=== PATIENT | female | born 1930 | race Caucasian/White ===

== ENCOUNTER 2016-10-27 16:07 | Observation (INO) | payer MEDICARE, OTHER ==
[~2016-10-27] VITALS: Ht 160 cm; Wt 52.2 kg
[2016-10-27] MEDS ORDERED: ASPIRIN 81MG TABLET PO ONE (16:45)
[2016-10-27 17:01] LABS: BASOPHILS % 0.9 % (0.0-2.0); EOSINOPHILS % 4.3 % (0.0-5.0); HEMATOCRIT. 34.5 % (36.0-48.0); HEMOGLOBIN. 11.2 g/dL (12.0-16.0); LYMPHOCYTES % 21.1 % (20.0-50.0); MEAN CORPUSCULAR HEMOGLOBIN 27.6 pg (28.0-32.0); MEAN CORPUSCULAR HGB CONC 32.3 g/dL (31.0-37.0); MEAN CORPUSCULAR VOLUME 85.5 fL (81.0-99.0); NEUTROPHILS % 65.7 % (40.0-76.0); PLATELET 285 x1000/uL (130-400); RED BLOOD CELL COUNT 4.04 mill/uL (4.2-5.4); RED CELL DISTRIBUTION WIDTH 14.8 % (11.6-14.6); WHITE BLOOD COUNT 7.1 x1000/uL (4.5-11.0)
[2016-10-27 17:05] LABS: PROTHROMBIN TIME 10.1 sec
[2016-10-27 17:10] LABS: ALANINE AMINOTRANSFERASE 19 IU/L (13-61); ALBUMIN 2.7 g/dL (3.4-5.0); ANION GAP 11; CALCIUM 8.9 mg/dL (8.5-10.1); CARBON DIOXIDE 29 mEq/L (21-32); CHLORIDE 106 mEq/L (98-107); INDEX HEMOLYSI 1 (1-3); INDEX ICTERIC 1 (1-4); INDEX LIPEMIC 1 (1-3); UREA NITROGEN BLOOD 24 mg/dL (7-21); eGFR > 60 mL/min (>60)
[2016-10-27 17:14] LABS: NT PRO B-TYPE NATRIURETIC PEP 219 pg/mL (5-125); TROPONIN I < 0.02 ng/mL (0.00-0.04)
[2016-10-27] MEDS ORDERED: LEVOFLOXACIN 750MG PREMIX 150 ML IV ONE (18:15)
[2016-10-28] VITALS: BP 150/77
[2016-10-28] MEDS ORDERED: TEMAZEPAM 15MG CAPSULE PO PRN (01:15)
[2016-10-28] MEDS ORDERED: ACETAMINOPHEN 325MG TABLET PO PRN (01:15)
[2016-10-28 02:51] LABS: CREATINE KINASE 60 IU/L (26-192); CREATINE KINASE MB FRACTION 1.7 ng/mL (0.5-3.6); INDEX HEMOLYSI 1 (1-3); TROPONIN I < 0.02 ng/mL (0.00-0.04)
[2016-10-28 04:00] VITALS: BP 114/71
[2016-10-28 08:00] VITALS: BP 117/84
[2016-10-28 08:31] LABS: BASOPHILS % 0.6 % (0.0-2.0); EOSINOPHILS % 3.1 % (0.0-5.0); HEMATOCRIT. 32.8 % (36.0-48.0); HEMOGLOBIN. 10.8 g/dL (12.0-16.0); LYMPHOCYTES % 17.5 % (20.0-50.0); MEAN CORPUSCULAR HEMOGLOBIN 27.9 pg (28.0-32.0); MEAN CORPUSCULAR HGB CONC 32.9 g/dL (31.0-37.0); MEAN CORPUSCULAR VOLUME 84.8 fL (81.0-99.0); MEAN PLATELET VOLUME 8.3 fl (7.4-10.4); MONOCYTES % 7.9 % (2.0-8.0); NEUTROPHILS % 70.9 % (40.0-76.0); PLATELET 284 x1000/uL (130-400); RED BLOOD CELL COUNT 3.87 mill/uL (4.2-5.4); WHITE BLOOD COUNT 6.9 x1000/uL (4.5-11.0)
[2016-10-28 08:53] LABS: ALANINE AMINOTRANSFERASE 13 IU/L (13-61); ALBUMIN 2.4 g/dL (3.4-5.0); ANION GAP 12; CALCIUM 8.3 mg/dL (8.5-10.1); CARBON DIOXIDE 28 mEq/L (21-32); CHLORIDE 107 mEq/L (98-107); CREATINE KINASE 63 IU/L (26-192); CREATINE KINASE MB FRACTION 1.4 ng/mL (0.5-3.6); HDL CHOLESTEROL 73 mg/dL (40-59); INDEX HEMOLYSI 1 (1-3); INDEX ICTERIC 1 (1-4); INDEX LIPEMIC 1 (1-3); LDL CHOLESTEROL 87 mg/dL (5-100); TRIGLYCERIDE 33 mg/dL (0-150); TROPONIN I < 0.02 ng/mL (0.00-0.04); UREA NITROGEN BLOOD 21 mg/dL (7-21); eGFR > 60 mL/min (>60)
[2016-10-28] MEDS ORDERED: ASPIRIN 325MG EC TABLET PO SCH (09:00)
[2016-10-28] MEDS ORDERED: ENOXAPARIN 40MG/0.4ML SYR SUBCUT SCH (09:00)
[2016-10-28] MEDS ORDERED: METOPROLOL TARTRATE 50MG TABLET PO SCH (09:00)
[2016-10-28] MEDS ORDERED: LEVOFLOXACIN 250MG TABLET PO SCH (11:00)
[2016-10-28 12:00] VITALS: BP 99/64
[2016-10-28] MEDS ORDERED: SODIUM CHLORIDE 0.9% 10ML VIAL ONE (13:45)
[2016-10-28] MEDS ORDERED: IOHEXOL-300 100 ML BOTTLE ONE (13:45)
[2016-10-28 16:00] VITALS: BP 109/73
[2016-10-28 18:04] LABS: CREATINE KINASE 80 IU/L (26-192); CREATINE KINASE MB FRACTION 1.6 ng/mL (0.5-3.6); INDEX HEMOLYSI 1 (1-3); TROPONIN I < 0.02 ng/mL (0.00-0.04)
[2016-10-28 18:39] VITALS: BP 109/73
== END 2016-10-28 19:55 | disposition home or self-care (01) ==
LOC: ER 16:08 → INTOOBSV 20:28 → 7WST 20:28
PROVIDERS: ADMIT Internal Medicine; ATTEND Internal Medicine
DX: R07.89 Other chest pain (principal); J18.9 Pneumonia, unspecified organism; Z79.82 Long term (current) use of aspirin
CPT/HCPCS: 36415; 71010; 71260; 80053; 80061; 82550; 82553; 83880; 84484; 85025; 85610; 87040; 93005; 93306; 96365; 96372; 99285; A4216; A6261; G0378; J1650; J1956; Q9967